=== PATIENT | male | born 2000 | race Caucasian/White ===

== ENCOUNTER 2021-09-27 06:24 | Inpatient (IN) ==
[2021-09-27 07:53] LABS: ABS Basophils 0.1 10^3/ul (0-0.2); ABS Lymphocytes 1.5 10^3/ul (1.0-4.8); ABS Monocytes 0.8 10^3/ul (0-0.8); ABS Neutrophils 9.8 10^3/ul (1.5-7.7); Eosinophil % 0.4 %; Hematocrit 40 % (42-52); Hemoglobin 12.9 g/dL (14.0-18.0); Lymphocyte % 12.2 %; Mean Corpuscular HGB Conc 32 g/dL (31-36); Mean Corpuscular Hemoglobin 26 pg (27-31); Mean Corpuscular Volume 80 fL (80-94); Mean Platelet Volume 8.5 fL (7.4-10.4); Platelet Count 285 10^3/uL (150-450); Red Blood Count 4.99 10^6 /uL (4.18-5.48); Red Cell Distribution Width 15 % (10-15); White Blood Count 12.1 10^3/uL (3.5-10.8)
[2021-09-27 08:53] LABS: ALT 28 U/L (7-52); AST 21 U/L (13-39); Acetaminophen < 15 mcg/mL; Albumin 4.4 g/dL (3.2-5.2); Albumin/Globulin Ratio 1.3 (1-3); Alcohol, S < 13 mg/dL (<13); Alkaline Phosphatase 70 U/L (35-149); Anion Gap 13 mmol/L (2-11); Blood Urea Nitrogen 17 mg/dL (6-24); CO2 Carbon Dioxide 24 mmol/L (22-32); Calcium 9.7 mg/dL (8.6-10.3); Chloride 103 mmol/L (101-111); Globulin 3.3 g/dL (2-4); Glucose 134 mg/dL (70-100); Potassium 4.1 mmol/L (3.5-5.0); Salicylate < 2.50 mg/dL (<30); Sodium 140 mmol/L (135-145); Total Protein 7.7 g/dL (6.4-8.9)
[2021-09-27 09:03] LABS: TSH Ultra Thyroid Stim Horm 2.35 mcIU/mL (0.34-5.60)
[2021-09-27] MEDS ORDERED: Al Hydrox/Mg Hydrox/Simet LIQ 30 ML UDC PO PRN (15:22)
[2021-09-27] MEDS ORDERED: Albuterol HFA INHALER 8 gm MDI INH PRN (15:23)
[2021-09-28] MEDS: Vitamin THERAPEUTIC TAB PO SCH (07:36)
[2021-09-29] MEDS: Vitamin THERAPEUTIC TAB PO SCH (08:38)
[2021-09-30] MEDS: Vitamin THERAPEUTIC TAB PO SCH (07:52)
[2021-10-01] MEDS: Vitamin THERAPEUTIC TAB PO SCH (07:18)
[2021-10-02 07:40] VITALS: BP 149/71
[2021-10-02] MEDS: Vitamin THERAPEUTIC TAB PO SCH (07:41)
[2021-10-02 08:03] LABS: Calcium 9.5 mg/dL (8.6-10.3); Potassium 4.3 mmol/L (3.5-5.0); eGFR CKD-EPI 117.5 (>60)
== END 2021-10-02 11:48 | disposition home or self-care (01) | DRG 755 ==
LOC: ED 06:24 → EDHOLD 12:00 → BSU 17:54
PROVIDERS: ADMIT Psychiatry & Neurology Psychiatry; ATTEND Psychiatry & Neurology Psychiatry